=== PATIENT | male | born 1985 | race American Indian/Alaskan Native ===

== ENCOUNTER 2020-07-01 22:10 | Emergency (ER) | payer MEDICAID ==
[2020-07-01] MEDS ORDERED: SODIUM CHLORIDE 0.9% 1000 ML IV SOLN IV ONE (23:01)
--- NOTE | 2020-07-01 23:06 | Emergency Department Report ---
Blank Doc - Documentation Documentation: 34-year-old male that presents with recurrent perianal abscess. Patient has tachycardia and febrile with some diaphoresis. 1- This initial assessment/diagnostic orders/clinical plan/ treatment(s) is/are subject to change based on pt's health status, clinical progression and re- assessment by fellow clinical providers in the ED. Further treatment and workup at subsequent clinical provers discretion. Patient/guardians urged not to elope from ED as their condition may be serious if not clinically assessed and managed. 2-code sepsis initiated 3-spider assembler notified of patient to be brought back now. 4-labs and IV medications order
[2020-07-01] MEDS ORDERED: HYDROcodone/ACETAMINOPHEN 10-325MG TAB PO ONE (23:12)
[2020-07-02 00:05] LABS: Hematocrit 50.1 % (35.5-45.6); Hemoglobin 16.5 gm/dl (11.8-15.2); Mean Corpuscular HGB Conc 33 % (32-34); Mean Corpuscular Volume 85 fl (84-94); Platelet Count 562 K/mm3 (140-440); Red Blood Count 5.92 M/mm3 (3.65-5.03); Red Cell Distribution Width 15.2 % (13.2-15.2)
--- NOTE | 2020-07-02 00:16 | XRay Report ---
CHEST 1 VIEW INDICATION / CLINICAL INFORMATION: sepsis. COMPARISON: None available. FINDINGS: SUPPORT DEVICES: None. HEART / MEDIASTINUM: No significant abnormality. LUNGS / PLEURA: No significant pulmonary or pleural abnormality. No pneumothorax. ADDITIONAL FINDINGS: Right upper extremity vascular stent partially visualized. IMPRESSION: 1. No acute findings. Signer Name: Ansley Owusu MD Signed: 07/02/2020 12:12 AM Workstation Name: [id number]
[2020-07-02 00:19] LABS: Alanine Aminotransferase 13 units/L (7-56); Albumin 3.1 g/dL (3.9-5); Blood Urea Nitrogen 4 mg/dL (9-20); Calcium 9.2 mg/dL (8.4-10.2); Hemolysis Index 3
[2020-07-02 00:22] LABS: BUN/Creatinine Ratio 10
--- NOTE | 2020-07-02 00:33 | Emergency Department Report ---
Blank Doc - Documentation Documentation: I was informed the patient's lactic acid is 2.0. Patient has a significant le ukocytosis. Sepsis protocol has been initiated to the IV fluids and antibiotics. Nurse encouraged to bring patient back to receive ordered treatment
[2020-07-02] MEDS ORDERED: VANCOMYCIN 1,500 MG in SODIUM CHLORIDE 0.9% 500 ML 500 ML IV ONE (01:16)
[2020-07-02] MEDS ORDERED: SODIUM CHLORIDE 0.9% 1000 ML 1,000 ML ONE ×2 (01:51→02:55)
[2020-07-02] MEDS ORDERED: VANCOMYCIN PHARMACY TO DOSE IV SCH (02:00)
[2020-07-02] MEDS ORDERED: HYDROmorphone 1 MG/1 ML INJ IV ONE ×3 (03:35→06:20)
[2020-07-02] MEDS ORDERED: ONDANSETRON 4 MG/2 ML INJ IV ONE (03:35)
[2020-07-02] MEDS ORDERED: SODIUM CHLORIDE 0.9% 1000 ML 1,000 ML IV ONE (03:35)
[2020-07-02] MEDS ORDERED: PIPERACIL/TAZOBACTA 4.5/NS 100 4.5 GM/100 ML VIAL IV ONE (04:17)
[2020-07-02 04:39] LABS: Bilirubin,Urine NEG (Negative); Blood,Urine NEG (Negative); Color,Urine Yellow (Yellow); Mucus,Urine FEW /HPF; Protein,Urine <15 mg/dL mg/dL (Negative); Urobilinogen,Urine < 2.0 mg/dL (<2.0)
--- NOTE | 2020-07-02 05:15 | Emergency Department Report ---
<MIREYA CLINE - Last Filed: 07/02/20 06:09> - General Chief complaint: Skin/Abscess/Foreign Body Stated complaint: GROIN PAIN/ABSCESS/BLEEDING Time Seen by Provider: 07/01/20 23:00 Source: patient, EMS Mode of arrival: Wheelchair Limitations: No Limitations - History of Present Illness Initial comments: 34-year-old male with a past medical history of hidradenitis with frequent flareups requiring localized surgery as well as antibiotics and admission presents to the hospital with complaints of hidradenitis flareup and draining abscesses for the last 4 days. Patient complains of pain to his right axilla area with purulent drainage, pain into his scrotal and inguinal area with active drainage, and a recurrent rectal abscess with active drainage. No complaints of fever. Last admission to [facility] was approximately 2 months ago. Patient wanted to go to [facility] but was diverted here because they were on diversion patient. Patient complains of 10/10 pain worse with palpation and movement of the inflamed areas - Related Data Allergies Allergy/AdvReac Type Severity Reaction Status Date / Time No Known Allergies Allergy Verified 07/01/20 23:09 Abscess Boil HPI - HPI Chief Complaint: Skin/Abscess/Foreign Body Stated Complaint: GROIN PAIN/ABSCESS/BLEEDING Time Seen by Provider: 07/01/20 23:00 Allergies/Adverse Reactions: Allergies Allergy/AdvReac Type Severity Reaction Status Date / Time No Known Allergies Allergy Verified 07/01/20 23:09 ED Review of Systems Comment: All other systems reviewed and negative ED Past Medical Hx - Past Medical History Previous Medical History?: Yes Additional medical history: HIDRODENITIS - Social History Smoking Status: Current Every Day Smoker Substance Use Type: Marijuana ED Physical Exam - General Limitations: No Limitations - Other Other exam information: General: No acute distress Head: Atraumatic Eyes: normal appearance ENT: Moist mucous membranes Neck: Normal appearance, no midline tenderness Chest: Clear to auscultation bilaterally CV: Regular rate and rhythm Abdomen: Soft, normal bowel sounds, nontender, nondistended, no rebound or guarding Back: Normal inspection Extremity: Normal inspection, full range of motion Neuro: Alert O x 3, no facial asymmetry, speech clear, no gross motor sensory deficit Psych: Appropriate behavior Skin: Right lateral chest wall/axilla area purulent drainage with cellulitis, hidradenitis. testicular swelling, scrotal edema with copious foul-smelling purulent drainage coming from intertriginous area of the groin. Swelling and drainage to perennial area extending to rectum ED Course - Consultations Consultation #1: 07/02/20 05:28 [facility] was called however, answering service states that they are on diversion and therefore not excepting transfers at this time 07/02/20 05:33 Case discussed with [facility] transfer service requested urology. Suspect that patient will require multidisciplinary approach for treatment given location of drainage and infection. Awaiting callback at this time ED Medical Decision Making - Lab Data Result diagrams: 07/01/20 23:28 07/01/20 23:28 - EKG Data -: EKG Interpreted by Ma EKG shows normal: sinus rhythm, ST-T waves (Non-STEMI) Rate: tachycardia (108) - Radiology Data Radiology results: report reviewed CHEST 1 VIEW INDICATION / CLINICAL INFORMATION: sepsis. COMPARISON: None available. FINDINGS: SUPPORT DEVICES: None. HEART / MEDIASTINUM: No significant abnormality. LUNGS / PLEURA: No significant pulmonary or pleural abnormality. No pneumothorax. ADDITIONAL FINDINGS: Right upper extremity vascular stent partially visualized. IMPRESSION: 1. No acute findings. CT ABDOMEN AND PELVIS WITH CONTRAST INDICATION / CLINICAL INFORMATION: Hidradenitis, possible rectal and testicular abscess. TECHNIQUE: Axial CT images were obtained through the abdomen and pelvis after 100 mL Omnipaque [address] scans at this location are performed using CT dose reduction for ALARA by means of automated exposure control. COMPARISON: None available. FINDINGS: LOWER CHEST: No significant abnormality. LIVER: No significant abnormality. BILIARY SYSTEM: No significant abnormality. PANCREAS: No significant abnormality. SPLEEN: No significant abnormality. ADRENALS: No significant abnormality. KIDNEYS and URETERS: No significant abnormality. STOMACH / BOWEL: No significant abnormality. The appendix is normal. PERITONEUM: No free fluid. No free air. No fluid collection. LYMPH NODES: No significant adenopathy. VASCULAR STRUCTURES: No significant abnormality. URINARY BLADDER: No significant abnormality. REPRODUCTIVE ORGANS: No significant abnormality. ADDITIONAL FINDINGS: There is extensive skin thickening and subcutaneous stranding and edema involving the pubis, penis, scrotum, perineum, gluteal cleft, and visualized medial upper thighs. There appear to be several small rim-enhancing fluid collections within the scrotum, the largest measuring up to approximately 2.5 x 1.1 cm (series 2, image 219), but no single large drainable fluid collection is identified. There is no discrete perirectal or perianal abscess identified. SKELETAL SYSTEM: No significant abnormality. IMPRESSION: 1. Extensive skin thickening and subcutaneous edema and stranding involving the penis, scrotum, perineum, and gluteal cleft as detailed above. There are several small rim- enhancing fluid collections within the scrotum most compatible with small abscesses, but no single large drainable fluid collection is appreciated. - Medical Decision Making 34-year-old male presents to the hospital with acute exacerbation of chronic hidradenitis with multiple areas of purulent drainage and significant leukocytosis. Sepsis protocol initiated. Patient treated with vancomycin and Zosyn as well as 30 mL/kg bolus of normal saline. Patient also received multipl e dose of Dilaudid for pain. In the past patient has been seen at [facility] however, they are currently on diversion and declined to accept patient. [facility] patient. As of 6 AM I am still awaiting urology callback and therefore patient will be signed out to oncoming provider Dr. De La Cruz Critical Care Time: No ED Disposition Clinical Impression: Scrotal abscess, Cellulitis, perineum, Penile cellulitis Disposition: Z-07 ELOPED Condition: Stable Referrals: PRIMARY CARE, [Primary Care Provider] - 3-5 Days Forms: AMA Form <RANDEE DEL A CRUZ - Last Filed: 07/02/20 14:55> ED Review of Systems ROS: Stated complaint: GROIN PAIN/ABSCESS/BLEEDING Other details as noted in HPI ED Course Vital Signs 07/01/20 07/01/20 07/02/20 22:52 23:14 05:56 Temperature 99.4 F 98.3 F Pulse Rate 129 H 109 H Respiratory 18 18 18 Rate Blood Pressure 133/90 Blood Pressure 112/78 [Left] O2 Sat by Pulse 96 100 Oximetry 07/02/20 07/02/20 07:25 11:21 Temperature Pulse Rate 88 Respiratory 22 18 Rate Blood Pressure Blood Pressure 118/74 [Left] O2 Sat by Pulse 100 Oximetry ED Medical Decision Making - Lab Data Result diagrams: 07/01/20 23:28 07/01/20 23:28 Vital Signs 07/01/20 07/01/20 07/02/20 22:52 23:14 05:56 Temperature 99.4 F 98.3 F Pulse Rate 129 H 109 H Respiratory 18 18 18 Rate Blood Pressure 133/90 Blood Pressure 112/78 [Left] O2 Sat by Pulse 96 100 Oximetry 07/02/20 07/02/20 07:25 11:21 Temperature Pulse Rate 88 Respiratory 22 18 Rate Blood Pressure Blood Pressure 118/74 [Left] O2 Sat by Pulse 100 Oximetry Lab Results 07/01/20 07/01/20 07/01/20 Range/Units 23:28 23:28 23:28 WBC 34.1 H (4.5-11.0) K/mm3 RBC 5.92 H (3.65-5.03) M/mm3 Hgb 16.5 H (11.8-15.2) gm/dl Hct 50.1 H (35.5-45.6) % MCV 85 (84-94) fl MCH 28 (28-32) pg MCHC 33 (32-34) % RDW 15.2 (13.2-15.2) % Plt Count 562 H (140-440) K/mm3 Add Manual Diff Complete Total Counted 100 Seg Neuts % (Manual) 85.0 H (40.0-70.0) % Band Neutrophils % 5.0 % Lymphocytes % (Manual) 5.0 L (13.4-35.0) % Reactive Lymphs % (Man) 0 % Monocytes % (Manual) 4.0 (0.0-7.3) % Eosinophils % (Manual) 1.0 (0.0-4.3) % Basophils % (Manual) 0 (0.0-1.8) % Metamyelocytes % 0 % Myelocytes % 0 % Promyelocytes % 0 % Blast Cells % 0 % Nucleated RBC % Not Reportable Seg Neutrophils # Man 29.0 H (1.8-7.7) K/mm3 Band Neutrophils # 1.7 K/mm3 Lymphocytes # (Manual) 1.7 (1.2-5.4) K/mm3 Abs React Lymphs (Man) 0.0 K/mm3 Monocytes # (Manual) 1.4 H (0.0-0.8) K/mm3 Eosinophils # (Manual) 0.3 (0.0-0.4) K/mm3 Basophils # (Manual) 0.0 (0.0-0.1) K/mm3 Metamyelocytes # 0.0 K/mm3 Myelocytes # 0.0 K/mm3 Promyelocytes # 0.0 K/mm3 Blast Cells # 0.0 K/mm3 WBC Morphology Not Reportable Hypersegmented Neuts Not Reportable Hyposegmented Neuts Not Reportable Hypogranular Neuts Not Reportable Smudge Cells Not Reportable Toxic Granulation Not Reportable Toxic Vacuolation Not Reportable Dohle Bodies Not Reportable Pelger-Huet Anomaly Not Reportable Ubaldo Rods Not Reportable Platelet Estimate Consistent w auto Clumped Platelets Not Reportable Plt Clumps, EDTA Not Reportable Large Platelets Not Reportable Giant Platelets Not Reportable Platelet Satelliting Not Reportable Plt Morphology Comment Not Reportable RBC Morphology Not Reportable Dimorphic RBCs Not Reportable Polychromasia Not Reportable Hypochromasia Not Reportable Poikilocytosis Not Reportable Anisocytosis Few Microcytosis Not Reportable Macrocytosis Not Reportable Spherocytes Not Reportable Pappenheimer Bodies Not Reportable Sickle Cells Not Reportable Target Cells Not Reportable Tear Drop Cells Not Reportable Ovalocytes Not Reportable Helmet Cells Not Reportable Up-Syosset Bodies Not Reportable Lagrange Rings Not Reportable Wayne Cells Not Reportable Bite Cells Not Reportable Crenated Cell Not Reportable Elliptocytes Not Reportable Acanthocytes (Spur) Not Reportable Rouleaux Not Reportable Hemoglobin C Crystals Not Reportable Schistocytes Not Reportable Malaria parasites Not Reportable Koby Bodies Not Reportable Hem Pathologist Commnt No Sodium 130 L (137-145) mmol/L Potassium 4.1 (3.6-5.0) mmol/L Chloride 92.4 L (98-107) mmol/L Carbon Dioxide 23 (22-30) mmol/L Anion Gap 19 mmol/L BUN 4 L (9-20) mg/dL Creatinine 0.4 L (0.8-1.3) mg/dL Estimated GFR > 60 ml/min BUN/Creatinine Ratio 10 % Glucose 99 (75-100) mg/dL Lactic Acid 2.00 (0.7-2.0) mmol/L Calcium 9.2 (8.4-10.2) mg/dL Total Bilirubin 0.50 (0.1-1.2) mg/dL AST 17 (5-40) units/L ALT 13 (7-56) units/L Alkaline Phosphatase 209 H (35-129) units/L Total Protein 7.9 (6.3-8.2) g/dL Albumin 3.1 L (3.9-5) g/dL Albumin/Globulin Ratio 0.6 % Urine Color (Yellow) Urine Turbidity (Clear) Urine pH (5.0-7.0) Ur Specific [place] (1.003-1.030) Urine Protein (Negative) mg/dL Urine Glucose (UA) (Negative) mg/dL Urine Ketones (Negative) mg/dL Urine Blood (Negative) Urine Nitrite (Negative) Urine Bilirubin (Negative) Urine Urobilinogen (<2.0) mg/dL Ur Leukocyte Esterase (Negative) Urine WBC (Auto) (0.0-6.0) /HPF Urine RBC (Auto) (0.0-6.0) /HPF Urine Mucus /HPF 07/02/20 07/02/20 07/02/20 Range/Units 04:18 04:21 06:48 WBC (4.5-11.0) K/mm3 RBC (3.65-5.03) M/mm3 Hgb (11.8-15.2) gm/dl Hct (35.5-45.6) % MCV (84-94) fl MCH (28-32) pg MCHC (32-34) % RDW (13.2-15.2) % Plt Count (140-440) K/mm3 Add Manual Diff Total Counted Seg Neuts % (Manual) (40.0-70.0) % Band Neutrophils % % Lymphocytes % (Manual) (13.4-35.0) % Reactive Lymphs % (Man) % Monocytes % (Manual) (0.0-7.3) % Eosinophils % (Manual) (0.0-4.3) % Basophils % (Manual) (0.0-1.8) % Metamyelocytes % % Myelocytes % % Promyelocytes % % Blast Cells % % Nucleated RBC % Seg Neutrophils # Man (1.8-7.7) K/mm3 Band Neutrophils # K/mm3 Lymphocytes # (Manual) (1.2-5.4) K/mm3 Abs React Lymphs (Man) K/mm3 Monocytes # (Manual) (0.0-0.8) K/mm3 Eosinophils # (Manual) (0.0-0.4) K/mm3 Basophils # (Manual) (0.0-0.1) K/mm3 Metamyelocytes # K/mm3 Myelocytes # K/mm3 Promyelocytes # K/mm3 Blast Cells # K/mm3 WBC Morphology Hypersegmented Neuts Hyposegmented Neuts Hypogranular Neuts Smudge Cells Toxic Granulation Toxic Vacuolation Dohle Bodies Pelger-Huet Anomaly Ubaldo Rods Platelet Estimate Clumped Platelets Plt Clumps, EDTA Large Platelets Giant Platelets Platelet Satelliting Plt Morphology Comment RBC Morphology Dimorphic RBCs Polychromasia Hypochromasia Poikilocytosis Anisocytosis Microcytosis Macrocytosis Spherocytes Pappenheimer Bodies Sickle Cells Target Cells Tear Drop Cells Ovalocytes Helmet Cells Up-Syosset Bodies Lagrange Rings Wayne Cells Bite Cells Crenated Cell Elliptocytes Acanthocytes (Spur) Rouleaux Hemoglobin C Crystals Schistocytes Malaria parasites Koby Bodies Hem Pathologist Commnt Sodium (137-145) mmol/L Potassium (3.6-5.0) mmol/L Chloride (98-107) mmol/L Carbon Dioxide (22-30) mmol/L Anion Gap mmol/L BUN (9-20) mg/dL Creatinine (0.8-1.3) mg/dL Estimated GFR ml/min BUN/Creatinine Ratio % Glucose (75-100) mg/dL Lactic Acid 1.40 0.80 (0.7-2.0) mmol/L Calcium (8.4-10.2) mg/dL Total Bilirubin (0.1-1.2) mg/dL AST (5-40) units/L ALT (7-56) units/L Alkaline Phosphatase (35-129) units/L Total Protein (6.3-8.2) g/dL Albumin (3.9-5) g/dL Albumin/Globulin Ratio % Urine Color Yellow (Yellow) Urine Turbidity Clear (Clear) Urine pH 6.0 (5.0-7.0) Ur Specific [place] 1.004 (1.003-1.030) Urine Protein <15 mg/dl (Negative) mg/dL Urine Glucose (UA) Neg (Negative) mg/dL Urine Ketones Neg (Negative) mg/dL Urine Blood Neg (Negative) Urine Nitrite Neg (Negative) Urine Bilirubin Neg (Negative) Urine Urobilinogen < 2.0 (<2.0) mg/dL Ur Leukocyte Esterase Neg (Negative) Urine WBC (Auto) 1.0 (0.0-6.0) /HPF Urine RBC (Auto) 3.0 (0.0-6.0) /HPF Urine Mucus Few /HPF Critical care attestation.: If time is entered above; I have spent that time in minutes in the direct care of this critically ill patient, excluding procedure time. ED Disposition Is pt being admited?: No ED Progress - Results/Orders Results/Orders: Patient evaluated at 8 AM, in no acute distress, hemodynamically stable f ollowing fluid administration, patient has received Vanco and Zosyn as well as multiple doses of IV Dilaudid. [facility] calls back, case discussed, [facility] refuses case secondary to absence of beds in the hospital. [facility] contacted for third separate time, again refuses transfer secondary to diversion. Local urology group from [facility] contacted, case discussed, states they are not on-call, outside the scope of their practice, recommend call [facility]. [facility] contacted, case discussed, refused transfer secondary to absence of beds. [facility] contacted, case discussed, recommend transfer to [facility], patient initially reluctant secondary to distance from [place], ultimately agrees to be transferred to site. Case discussed with Dr. Martinez, urology on-call at [facility] who accepts case, case discussed with Dr. Duran from [facility] who accepts case, transfer center calls back, states hospitalist must accept case, inadvertently has nurse practitioner accept case, transfer center getting calls back, has hospitalist Dr. Bruno call back, ca se discussed, also accepts patient for transfer. During the course of this conversation, patient eloped from hospital.
[2020-07-02 06:07] LABS: Band Neutrophils # (Manual) 1.7 K/mm3; Basophils % (Manual) 0 % (0.0-1.8); Total Cells Counted 100
[2020-07-02 06:08] LABS: Anisocytosis Few; Platelet Estimate Consistent w Auto
[2020-07-02] MEDS ORDERED: ACETAMINOPHEN 325 MG TAB PO ONE (09:13)
[2020-07-02] MEDS ORDERED: oxyCODONE /ACETAMINOPHEN 5-325MG TAB PO PRN (10:32)
[2020-07-02 11:22] VITALS: BP 118/74
[2020-07-02] MEDS ORDERED: VANCOMYCIN 1,250 MG in SODIUM CHLORIDE 0.9% 250ML 250 ML IV SCH (14:00)
== END 2020-07-02 14:55 | disposition left against medical advice (07) ==
LOC: ED 22:10
DX: L03.315 Cellulitis of perineum (principal); N48.22 Cellulitis of corpus cavernosum and penis; F17.200 Nicotine dependence, unspecified, uncomplicated; F12.10 Cannabis abuse, uncomplicated
CPT/HCPCS: 36415; 71045; 74177; 80053; 81001; 82140; 85007; 85025; 87040; 93005; 96365; 96366; 96368; 96375; 96376; 99285; J1170; J2405; J2543; J3370; J7030; J7040; J7050; Q9967; J0690